=== PATIENT | female | born 1985 ===

== ENCOUNTER 2016-07-12 06:35 | Inpatient (IN) | payer OTHER ==
[2016-07-12] MEDS ORDERED: Penicillin G 5 Million Unit Vial IVPB ONE ×2 (07:13→07:42)
--- NOTE | 2016-07-12 07:14 | OBADHP ---
Datetime: 07/12/2016 07:09 Admit Comment, IP Provider: at 36=weeks came with c/o srom at 6 am and ctxs started, irrg, 09/07 , no vb,+fm. obhx [rmi pmh denies med pnv all nkda psh den soch den ve 5/100/-1 ssse clear, +pooling a/p at 36+week prom/labor sin to l_d npo/ivf labs cont florin and betty troy g anticipate Pelvic Type - PN: Adequate Extremities - PN: Normal Abdomen - PN: Normal Back - PN: Normal Breast - PN: Normal Lungs - PN: Normal Heart - PN: Normal Thyroid - PN: Normal Neurologic - PN: Normal HEENT - PN: Normal General - PN: Normal FHR - Baseline A Provider: 130 Contraction Comments Provider: q1-4 Comments, ACOG Physical Exam: grAVID,NON TENDER EXT NO EDEMA,NO CALF TEN SSE CLEAR VE 5/100/-1 IP Hx Assessment: The History has been Reviewed and is Current Vital Signs Provider: Reviewed; Within Normal Limits IP Chief Complaint: Uterine contractions; Suspected ruptured membranes NICHD Variability Prov Fetus A: Moderate 6-25bpm NICHD Accel Fetus A IP Provider: 15X15 FHR Category Provider Fetus A: Category I Dilatation, Provider: 5 Effacement, Provider: 100 Station, Provider: -1 Genitourinary Exam: Normal DTRs - PN: Normal EGA AdmitDate IP: 36.5 IP Adm Impression: , intrauterine ; Active labor; Ruptured Membranes IP Admit Plan: Admit to unit; Initiate labor protocol
[2016-07-12] MEDS ORDERED: Lactated Ringer's 1,000 ML IV SCH (07:15)
[2016-07-12 07:56] LABS: BASO % 0.1 % (0.0-2.0); EOS % 0.4 % (0.0-4.0); HEMATOCRIT 30.3 % (34.0-47.0); LYMPH # 1.4 K/uL (1.0-4.3); LYMPH % 13.8 % (20.0-40.0); MEAN CORPUSCULAR HEMOGLOBIN 25.7 pg (27.0-31.0); MEAN CORPUSCULAR HGB CONC 32.5 g/dL (33.0-37.0); MEAN PLATELET VOLUME 8.3 fL (7.2-11.7); MONO # 0.5 K/uL (0.0-0.8); MONO % 5.1 % (0.0-10.0); RED CELL DISTRIBUTION WIDTH 16.1 % (11.5-14.5); WHITE BLOOD COUNT 9.9 K/uL (4.8-10.8)
[2016-07-12 07:57] LABS: MEAN CELL VOLUME 79.1 fL (81.0-99.0)
[2016-07-12] MEDS ORDERED: Oxytocin 30 UNIT 500 ML IV ONE (08:03)
[2016-07-12] MEDS ORDERED: Oxytocin 30 UNIT 500 ML IV PRN (08:14)
[2016-07-12 08:19] LABS: RBC URINE 4 /hpf (0-3); URINE BACTERIA RARE (<OCC); URINE BILIRUBIN NEGATIVE (NEGATIVE); URINE COLOR Straw (YELLOW); URINE GLUCOSE (UA) NORMAL (Normal); URINE KETONE NEGATIVE (NEGATIVE); URINE LEUKOCYTE ESTERASE 2+ Leu/uL (Negative); URINE PROTEIN NEGATIVE (NEGATIVE); URINE UROBILINOGEN NORMAL mg/dL (0.2-1.0); WBC URINE 12 /hpf (0-5)
[2016-07-12 08:21] LABS: URINE BLOOD 1+ (NEGATIVE)
[2016-07-12] MEDS ORDERED: Bupivacaine 0.125%/FentaNYL 200 ML EPI ONE (08:23)
[2016-07-12 08:25] LABS: CHLORIDE 106 mmol/L (98-107)
[2016-07-12 08:26] LABS: SODIUM 136 mmol/L (132-148)
[2016-07-12 08:28] LABS: ALKALINE PHOSPHATASE 126 U/L (38-126); ALT/SGPT 19 U/L (9-52); AST/SGOT 17 U/L (14-36); BILIRUBIN,TOTAL < 0.1 mg/dL (0.2-1.3); BLOOD UREA NITROGEN 6 mg/dL (7-17); CARBON DIOXIDE 18 mmol/L (22-30); GFR AFRICAN-AMERICAN > 60; GLUCOSE,RANDOM 127 mg/dL (65-105); TOTAL PROTEIN 6.7 g/dL (6.3-8.3)
[2016-07-12 08:29] LABS: CALCIUM 9.2 mg/dl (8.6-10.4)
[2016-07-12] MEDS ORDERED: Bupivacaine HCl 0.25% PF (10 ml) Inj ONE (09:00)
--- NOTE | 2016-07-12 09:38 | OBPN ---
Datetime: 07/12/2016 09:35 IP Progress Impression: Normal progression of labor IP Procedures: Sterile Vag Exam IP Progress Plan: Continue present management Contraction Comments Provider: q1-3 FHR - Baseline A Provider: 130 IP Progress Note Comment: pt was examined at bed side ve /-1 cont pitocin anticipate Vital Signs Provider: Reviewed; Within Normal Limits NICHD Accel Fetus A IP Provider: 15X15 FHR Category Provider Fetus A: Category I NICHD Variability Prov Fetus A: Moderate 6-25bpm Dilatation, Provider: 9 Effacement, Provider: 100 Station, Provider: -1
[2016-07-12] MEDS ORDERED: Oxycodone/Acetaminophen 5/325 mg Tab PO PRN (10:42)
[2016-07-12] MEDS ORDERED: Oxytocin 30 UNIT 1,000 ML IV SCH (10:45)
--- NOTE | 2016-07-12 11:06 | OBDS ---
DELIVERY PERSONNEL Delivery Doctor: Daren Izquierdo MD Circuit Manager: Lynn Martinez RN Anesthesiologist: Dr. Cordero Resident: Dena Rogel DO MATERNAL INFORMATION Delivery Anesthesia: Epidural Medications in Delivery: Pitocin 30 units IV Estimated Blood Loss (ml): 350 Placenta Cultured: Yes Maternal Complications: None RN Comments: Liveborn Baby Boy. 9-9 Provider Comments: baby delivrd in cordelia. endometrium clean. 9/9. 2nd laceration repaired with 2 chromic and vicryl cord gas send. no com LABOR SUMMARY EDC: 08/04/2016 00:00 No. Babies in Womb: 1 Attempted: No Labor Anesthesia: Epidural LABOR INFORMATION Reason for Induction: Not Applicable Onset of Labor: 07/12/2016 06:00 Complete Dilatation: 07/12/2016 10:00 Oxytocin: Augmentation Group B Beta Strep: Done, Result Unknown Antibiotics # of Doses: 1 Antibiotics Time of Last Dose: 0750 Steroids Given: None Reason Steroids Not Administered: Not Applicable MEMBRANES Membranes Rupture Method: Spontaneous Rupture of Membranes: 07/12/2016 06:00 Length of Rupture (hrs): 4.42 Amniotic Fluid Color: Clear Amniotic Fluid Amount: Large Amniotic Fluid Odor: None STAGES OF LABOR Stage 1 hrs: 4 Stage 1 min: 0 Stage 2 hrs: 0 Stage 2 min: 25 Stage 3 hrs: 0 Stage 3 min: 1 Total Time in Labor hrs: 4 Total Time in Labor min: 26 VAGINAL DELIVERY Episiotomy: None Laceration Extension: Second Degree Laceration Type: Perineal Laceration Repair: Yes Laceration Repair Note: repaied with 2 nd laceration Initial Vag Sponge Count: 10 Final Vag Sponge Count: 10 Initial Vag Sharps Count: 0 Final Vag Sharps Count: 3 Sponge Count Correct: Yes; Vaginal Sweep Performed Sharps Count Correct: Yes BABY A INFORMATION Delivery Date/Time: 07/12/2016 10:25 Method of Delivery: Vaginal Born in Route : No : N/A Forceps: N/A Vacuum Extraction: N/A Shoulder Dystocia : No SHOULDER DYSTOCIA BABY A Delivery Date/Time: 07/12/2016 10:25 PRESENTATION/POSITION BABY A Presentation: Cephalic Cephalic Presentation: Vertex Vertex Position: Left Occipital Anterior Breech Presentation: N/A PLACENTA INFORMATION BABY A Placenta Delivery Time : 07/12/2016 10:26 Placenta Method of Delivery: Manual Removal Placenta Status: Delivered SCORES BABY A Heart Rate 1 min: >100 bpm Resp Effort 1 min: Good Cry Reflex Irritability 1 min: Cough or Sneeze or Pulls Away Muscle Tone 1 min: Active Motion Color 1 min: Completely [place] Resuscitation Effort 1 min: N/A SCORE 1 MIN: 10 Heart Rate 5 min: >100 bpm Resp Effort 5 min: Good Cry Reflex Irritability 5 min: Cough or Sneeze or Pulls Away Muscle Tone 5 min: Active Motion Color 5 min: Completely [place] Resuscitation Effort 5 min: N/A SCORE 5 MIN: 10 INFORMATION BABY A Gestational Age at Delivery: 36.5 Gestational Status: Outcome : Liveborn Condition : Stable Sex: Male IDENTIFICATION/MEDS BABY A ID Band Number: [id number] ID Band Location: Left Leg; Left Arm Sensor Applied: Yes Sensor Number: [id number] Sensor Location : Cord Clamp Vitamin K Given : Not Given Erythromycin Given: Not Given WEIGHT/LENGTH BABY A Birthweight (gms): 3200 Weight (lb): 7 Infant Weight (oz): 1 Length Inches: 20.00 Infant Length cms: 50.8 CORD INFORMATION BABY A No. Cord Vessels: 3 Nuchal Cord : N/A Cord Blood Taken: Yes Suction: Mouth; Nose ASSESSMENT BABY A Complications: None Physical Findings at Delivery: Within Normal Limits Physical Findings Other: T=99.1 NE=038 RR= 48 O2sat = 98% Respirations: Appears Normal [employer] Called : No Care By: Jeanne Gracia RN Transferred To: Remains with Mother
[2016-07-12] MEDS ORDERED: Penicillin G Potassium 2.5 MU in Dextrose 5% In Water 50 ML IVPB SCH (11:30)
[2016-07-12] MEDS: Benzocaine/Menthol 20%-0.5% Topical Spray (60 ml) TOP PRN (15:39)
[2016-07-12 18:22] VITALS: RESP 20
[2016-07-13 08:19] LABS: HEMATOCRIT 23.1 % (34.0-47.0); MEAN CELL VOLUME 78.5 fL (81.0-99.0); MEAN CORPUSCULAR HGB CONC 31.9 g/dL (33.0-37.0); MEAN PLATELET VOLUME 8.1 fL (7.2-11.7); RED CELL DISTRIBUTION WIDTH 16.3 % (11.5-14.5); WHITE BLOOD COUNT 13.5 K/uL (4.8-10.8)
[2016-07-14 08:13] VITALS: BP 124/70; PULSE 108; TEMP 98.2; O2SAT 100
[2016-07-14] MEDS: Benzocaine/Menthol 20%-0.5% Topical Spray (60 ml) TOP PRN (09:12)
--- NOTE | 2016-07-14 22:21 | OBDCSUM ---
Datetime: 07/14/2016 10:00 Discharged to, Provider: Home Follow up at, Provider: Dr Nohemy Durand Instr Activity: May be up to bathroom; May be up for meals; May Shower Discharge Time: 07/14/2016 10:00 Follow up in weeks, Provider: 6 weeks Disch Referrals: None Disch Activity Restrictions: No exercising; No lifting; No driving; Minimize walking; Minimize stair -climbing; No sexual activity; Nothing in vagina - [place], tampons, douche Discharge Comment, Provider: S/P , Clinically Stable Discharge Diagnosis Prov Other: S/P , Clinically Stable
--- NOTE | 2016-07-14 22:23 | OBPPN ---
Datetime: 07/14/2016 09:57 PP Comments Phys Exam Prov: Uterus firm and contracted and lochia minimal. PP Impression Prov: Normal progression PP Plan Prov: Discharge PP Progress Note Prov: S/P , Clinically Stable Plan: D/C Home Datetime: 07/13/2016 09:22 PP Pain Prov: Within normal limits PP Nausea Prov: Denies PP Flatus Prov: Yes PP Breasts Prov: Normal PP Heart Prov: Normal PP Lungs Prov: Normal PP Abdomen/Uterus Prov: Normal PP Lochia Prov: Normal PP Vulva/Perineum Prov: Normal PP CVA Tenderness Prov: Normal PP Extremities Prov: Normal Vital Signs Provider PP: Reviewed
--- NOTE | 2016-07-14 22:25 | OBPPN ---
Datetime: 07/13/2016 09:22 PP Comments Phys Exam Prov: Abd: Soft, NT, BS- present Ut- Firm PP Impression Prov: Normal progression PP Plan Prov: Continue present management PP Progress Note Prov: S/P , Clinically Stable. Plan : Continue care.
== END 2016-07-14 20:00 | disposition home or self-care (01) | DRG 775 ==
LOC: C.EROB 06:35 → C.4D 07:10 → C.4M 13:28
PROVIDERS: ADMIT Obstetrics & Gynecology; ATTEND Obstetrics & Gynecology
PROC: 10E0XZZ Delivery of Products of Conception, External Approach (ICD-10-PCS; principal; 2016-07-12)
PROC: 0KQM0ZZ Repair Perineum Muscle, Open Approach (ICD-10-PCS; 2016-07-12)
DX: O60.14X0 Preterm labor third trimester with preterm delivery third trimester, not applicable or unspecified (principal); O70.1 Second degree perineal laceration during delivery; Z3A.36 36 weeks gestation of pregnancy; Z37.0 Single live birth